=== PATIENT | female | born 1985 | race Caucasian/White ===

== ENCOUNTER → 2017-04-06 | Outpatient (CLI) | payer BC ==
[~2017-04-06] MED LIST: ALBUTEROL0.09 MG/A2 IH; AUGMENTIN 875 M1 TAB PO; CIPRODEX 0.3%-7.5 ML OT; KEFLEX500 MG PO; MEDROL DOSEPAK4 MG PO; MOTRIN800 MG PO; Motrin,Rufen800 MG PO; NKHM; ROBITUSSIN AC 110 ML PO
== END | disposition home or self-care (01) ==
LOC: RESCLI 07:50
DX: J04.0 Acute laryngitis (principal); R00.0 Tachycardia, unspecified; R68.89 Other general symptoms and signs; E66.01 Morbid (severe) obesity due to excess calories; F17.200 Nicotine dependence, unspecified, uncomplicated